=== PATIENT | male | born 1955 | race Caucasian/White ===

== ENCOUNTER 2019-03-18 15:26 | Observation (INO) ==
[2019-03-18] MEDS ORDERED: D5 1/2 NS 1,000 ML IV SCH (16:00)
--- NOTE | 2019-03-18 16:08 | Diag Imaging Result Doc PS360 ---
EXAM: CHEST-1 VIEW 03/18/2019 HISTORY: liver failure TECHNIQUE: AP portable at 1551 COMMENT: The inspiration is not as optimal as on 02/06/2019. There are apparent fibrotic changes near the left costophrenic angle. There is a granuloma in the left upper lobe. There is apical pleural and parenchymal fibrosis bilaterally. The heart size and pulmonary vascularity are within normal limits. IMPRESSION: No acute disease. Electronically signed by Bo Tompkins 03/18/2019 4:05 PM
--- NOTE | 2019-03-18 16:32 | EKG Report ---
Test Performed on : 03/18/2019 3:59:44 PM Test Reason : liver failure Blood Pressure : / mmHG Vent. Rate : 095 BPM Atrial Rate : 095 BPM P-R Int : 192 ms QRS Dur : 110 ms QT Int : 364 ms P-R-T Axes : 053 057 034 degrees QTc Int : 457 ms Normal sinus rhythm. Right atrial enlargement Borderline ECG When compared with ECG of 07-FEB-2019 08:14, QRS duration has increased T wave amplitude has decreased in Anterior leads Confirmed by Kwesi EM, Toy Dahl ([id number]) on 03/18/2019 6:03:19 PM
--- NOTE | 2019-03-18 16:45 | Diag Imaging Result Doc PS360 ---
EXAM: US ABDOMEN-COMPLETE 03/18/2019 HISTORY: r/o ascites TECHNIQUE: Abdominal ultrasound COMMENT: A limited study was performed to evaluate the presence of ascites. There is indeed ascites. IMPRESSION: Ascites. Electronically signed by Bo Tompkins 03/18/2019 4:42 PM
[2019-03-18 18:32] LABS: HEMATOCRIT 39.3 % (42.0-52.0); HEMOGLOBIN 13.1 g/dL (14.0-18.0); MCH 30.1 PG (27-31); MCHC 33.3 g/dL (33-37); MCV 90.3 FL (81-99); RBC 4.35 XMIL (4.7-6.1); RDW 14.4 % (11.5-14.5); WBC 8.3 X1000 (4.8-10.8)
[2019-03-18 18:37] LABS: INR 1.47; PROTIME 18.1 Seconds (11.0-16.0)
[2019-03-18 18:38] LABS: PTT 36.1 Seconds (22.3-41.8)
[2019-03-18 18:50] LABS: AGAP 14; ALB/GLOB RATIO 0.4; ALBUMIN 2.4 g/dL (3.5-5.0); ALKALINE PHOSPHATASE 194 U/L (32-122); BUN 6 mg/dL (8-22); CHLORIDE 101 mmol/L (98-107); COSMO 274; CREATININE 0.8 mg/dL (0.7-1.2); ESTIMATED GFR > 60; GLUCOSE 109 mg/dL (70-104); GOT 59 U/L (10-34); GPT 25 U/L (10-44); POTASSIUM 3.2 mmol/L (3.5-5.1); SODIUM 138 mmol/L (136-145); TCO2 23 mmol/L (25-35); TOTAL BILIRUBIN 1.58 mg/dL (0.20-1.00); TOTAL PROTEIN 8.5 g/dL (6.3-8.3)
[2019-03-18] MEDS: D5 1/2 NS + KCL 30 MEQ 1,000 ML IV SCH (22:24)
[2019-03-18] MEDS: AMBIEN PO SCH (22:25)
[2019-03-19 02:09] LABS: URINE SOURCE VOIDED
[2019-03-19 02:11] LABS: BILIRUBIN URINE SMALL (NEGATIVE); BLOOD URINE NEGATIVE (NEGATIVE); COLOR ORANGE; GLUCOSE URINE NEGATIVE (NEGATIVE); KETONE URINE TRACE mg/dL (NEGATIVE); LEUKOCYTES URINE NEGATIVE (NEGATIVE); NITRITE URINE NEGATIVE (NEGATIVE); PROTEIN URINE 30 mg/dL (NEGATIVE); TURBIDITY URINE CLEAR (CLEAR); UROBILINOGEN URINE 8 mg/dL (NORMAL)
[2019-03-19 02:26] LABS: UR EPITHELIAL CELLS <10 /HPF (<10); URINE BACTERIA NEGATIVE /HPF; URINE WBC <10 /HPF (<10)
[2019-03-19 02:28] LABS: URINE CASTS NONE SEEN; URINE CRYSTALS NONE SEEN; URINE SMALL ROUND CELLS NONE SEEN; URINE YEAST NONE SEEN
[2019-03-19] MEDS: PROTONIX PO SCH (06:41)
[2019-03-19] MEDS: THERA M PLUS PO SCH (08:55)
[2019-03-19] MEDS: CARAFATE PO SCH ×3 (08:55→17:00)
--- NOTE | 2019-03-19 09:34 | Diag Imaging Result Doc PS360 ---
US PELVIC MALE (COMPLETE) - 03/19/2019 INDICATION: liver failure/cirrhosis/ascites TECHNIQUE: Ultrasound limited COMPARISON: None FINDINGS: Ultrasound was performed for ascites. There is trace ascites, certainly not enough to drain. Probably about 1 to 2 L overall. IMPRESSION: Trace ascites, not enough to drain. Electronically signed by Carl Ochoa 03/19/2019 9:31 AM
--- NOTE | 2019-03-19 10:51 | Diag Imaging Result Doc PS360 ---
EXAM: CT ABD/PELVIS W/PO AND IV CON INDICATION: abd pain TECHNIQUE: This exam was performed using automated exposure control, adjustment of mA or kV according to patient size, and/or use of iterative reconstruction technique. COMPARISON: None. FINDINGS: There is a trace effusion at the right lung base and right basilar atelectasis. There is large volume ascites throughout the abdomen and pelvis, much higher volume than was suggested on a recent ultrasound. There is advanced cirrhosis. The liver parenchyma is extremely heterogeneous in there is ill-defined low density involving much of the right hepatic lobe and caudate lobe. Parts of this appears somewhat masslike and other parts appear infiltrative. It is suspicious for a neoplastic process, namely hepatocellular carcinoma. There has been a prior cholecystectomy. There is no splenomegaly. The pancreas, adrenal glands, and kidneys are unremarkable. The urinary bladder is nondistended. There is a small right inguinal hernia that contains only fat and fluid. There is wall thickening involving the entire colon but most prominent at the ascending colon and transverse colon. At least in part, this is due to the surrounding ascites and, at the ascending and transverse colon, fatty infiltration of the wall. However, a component of colitis cannot be excluded. There is also mild mucosal thickening involving practically the entire small bowel which is probably related to the ascites. There is a small hiatal hernia. No significant lymphadenopathy is appreciated. There is nothing to suggest local bony metastatic disease. There is a medullary angela and helical nail associated with the right indicating prior ORIF. IMPRESSION: 1.Large volume ascites with a much larger volume than would suggest on the earlier ultrasound. 2.Advanced cirrhosis with patchy masslike an infiltrative low density associated with the right hepatic lobe and caudate lobe of the liver that is suspicious for neoplasm. 3.Diffuse colonic wall thickening that is worst at the ascending and transverse colon. In part, this may be due to the surrounding ascites. A component of colitis cannot be excluded. 4.Milder diffuse mucosal thickening involving the entire small bowel, which is probably related to the surrounding ascites. Electronically signed by Jad Lawrence 03/19/2019 10:49 AM
[2019-03-19] MEDS ORDERED: IMODIUM PO PRN (17:47)
[2019-03-19] MEDS: D5 1/2 NS + KCL 30 MEQ 1,000 ML IV SCH (20:25)
[2019-03-19] MEDS: AMBIEN PO SCH (20:27)
--- NOTE | 2019-03-19 21:09 | GASTROENTEROLOGY CONSULTATION ---
DATE: 03/19/2019 REASON FOR CONSULTATION: Cirrhosis of the liver, ascites. HISTORY OF PRESENT ILLNESS: This is a 63-year-old, male, who was admitted by Dr. Velazco for abdominal distention. He has had radiology studies on admission. Abdominal ultrasound showed a limited study due to the presence of ascites. He had a pelvis ultrasound to evaluate for ascites that showed trace ascites, but was reported not enough to drain, estimated 1 to 2 L. He then had a CT scan of the abdomen and pelvis today that showed a large volume ascites with a much larger volume than was suggested on the earlier ultrasound. Findings also showed advanced cirrhosis with patchy masslike, infiltrative low density associated with the right hepatic lobe and caudate lobe of the liver, suspicious for neoplasm. Findings also showed diffuse colon wall thickening at the ascending and transverse colon possibly due to surrounding ascites or possible colitis, and mild diffuse mucosal thickening involving the entire small bowel probably related to surrounding ascites. Per patient, he has had onset of symptoms for about a month. He has had abdominal bloating. He has reported constipation and has not been able to eat much. He actually reported some diarrhea today. He has had some lower extremity swelling, but it has improved. He had laparoscopic cholecystectomy by Dr. Velazco on 02/07/2019. He also had a liver biopsy at that time. Gallbladder pathology showed chronic cholecystitis with mucosal erosion, edema, and cholesterolosis. Liver biopsy showed nodular cirrhosis with bridging fibrosis. No iron deposit seen. There was microvesicular and macrovesicular steatosis in approximately 50% of the hepatocytes with chronic inflammation seen. During workup in January, he had a hepatitis profile that showed reactive hepatitis C antibody, but hepatitis C RNA was undetected. The patient reports alcohol use of 2 shots of whiskey daily for many years. His last alcohol use was two days ago. He has reported some shortness of breath in relation to abdominal distention. No reported chest pain. PAST MEDICAL HISTORY: Gallbladder disease, status post cholecystectomy in January 2019. PAST SURGICAL HISTORY: History of hip fracture and hip replacement, right. Neck surgery, cholecystectomy in January 2019. ALLERGIES: Lisinopril causing anaphylaxis. HOME MEDICATIONS: Multivitamin daily, Protonix 40 mg daily, Carafate 1 g 3 times a day. SOCIAL HISTORY: Positive for tobacco use, 1/2 pack to 1 pack daily. Positive for alcohol use, two shots of whiskey daily. No reported IV drugs. No reported marijuana use. He is on disability. He has 2 children. He is not . REVIEW OF SYSTEMS: Per history of present illness. PHYSICAL EXAMINATION: Vital Signs: Temperature 97.9 degrees, pulse 100, respirations 20, blood pressure 123/74. General: Patient is awake and alert, in no acute distress. HEENT: Normocephalic, atraumatic. Pupils equal, round, reactive to light. Sclerae nonicteric. Respiratory: Lung sounds essentially clear. Abdomen: Distention, somewhat firm. Tender with palpation. Neurologic: Cranial nerves 2-12 grossly intact. Musculoskeletal: No current swelling in the lower extremities noted. DIAGNOSTIC RESULTS: Laboratory: Hematology: WBC 8.30, hemoglobin 13.1, hematocrit 39.3, MCV 90.3, platelet 320,000. Chemistry: Sodium 138, potassium 3.2 chloride 101, CO2 of 23, BUN 6, creatinine 0.8, glucose 109, calcium 9.0, total bilirubin 1.58, AST 59, ALT 25, alkaline phosphatase 194, total protein 8.5, albumin 2.4. Coagulation: ProTime 18.1, INR 1.47, PTT 36.1. Imaging studies: Abdominal ultrasound that has showed a small amount of ascites. CT scan showed a larger amount of ascites and possible masslike effect in the right hepatic lobe and caudate lobe of the liver questionable for neoplasm. Also, showing diffuse colon wall thickening at the ascending and transverse colon, and mucosal thickening in the small bowel. ASSESSMENT: 1. Cirrhosis of the liver. 2. Alcohol abuse. 3. Hepatitis C antibody reactive, but viral load is undetected. 4. Ascites. 5. CT scan showing possible mass in the liver. PLAN: We will order alpha-fetoprotein, MRI of the abdomen with attention to liver, repeat of ultrasound of the abdomen for possible diagnostic and therapeutic paracentesis if able. Labs have been ordered. Further plans will be made according to findings. I have discussed this case with Dr. Nye. Thank you for this consultation. Dictated by FRANK Caldwell for Parveen Nye MD cc: FRANK Bob MD Hugh C. Nabers, MD
[2019-03-20] MEDS: PROTONIX PO SCH (06:12)
[2019-03-20 07:04] LABS: BASO# 0.04 X1000 (0.0-0.2); BASO% 0.5 % (0.0-0.8); EOS# 0.24 X1000 (0.0-0.7); EOS% 3.1 % (0.0-10.0); HEMATOCRIT 31.8 % (42.0-52.0); HEMOGLOBIN 10.4 g/dL (14.0-18.0); IMM GRAN# 0.03 X1000 (0.0-0.04); IMM GRAN% 0.4 % (0.0-0.5); LYMPH# 2.26 X1000 (1.2-3.4); LYMPH% 29.4 % (20.5-51.1); MCH 29.1 PG (27-31); MCHC 32.7 g/dL (33-37); MCV 89.1 FL (81-99); MONO# 1.53 X1000 (0.11-0.59); MONO% 19.9 % (1.7-9.3); MPV 10.8 FL (7.4-10.4); NEUT# 3.58 X1000 (1.4-6.5); NEUT% 46.7 % (42.2-75.2); PLT 277 X1000 (130-400); RBC 3.57 XMIL (4.7-6.1); WBC 7.68 X1000 (4.8-10.8)
[2019-03-20 07:10] LABS: INR 1.64; PROTIME 19.8 Seconds (11.0-16.0)
[2019-03-20 07:26] LABS: AGAP 10; ALB/GLOB RATIO 0.4; ALKALINE PHOSPHATASE 145 U/L (32-122); AMYLASE 71 U/L (20-200); BUN 7 mg/dL (8-22); CHLORIDE 102 mmol/L (98-107); COSMO 267; CREATININE 0.7 mg/dL (0.7-1.2); ESTIMATED GFR > 60; GLUCOSE 104 mg/dL (70-104); GOT 50 U/L (10-34); GPT 19 U/L (10-44); LIPASE 39 U/L (13-60); POTASSIUM 3.6 mmol/L (3.5-5.1); SODIUM 134 mmol/L (136-145); TCO2 22 mmol/L (25-35); TOTAL BILIRUBIN 1.32 mg/dL (0.20-1.00); TOTAL PROTEIN 7.1 g/dL (6.3-8.3)
--- NOTE | 2019-03-20 08:59 | Diag Imaging Result Doc PS360 ---
US ABD PARACENTESIS W S/I - 03/20/2019 INDICATION: ascites, cirrhosis of liver COMPARISON: None FINDINGS: The risks and benefits of the procedure were discussed with the patient. All questions were answered. Written and verbal consent was obtained. Ultrasound scanning demonstrated ascites. Overlying skin was prepped and draped in sterile fashion. Anesthesia was achieved with injection of 10 cc 1% lidocaine. The paracentesis catheter was advanced until the return of ascites fluid. 4 L was aspirated. The catheter was withdrawn intact. The patient reported no symptoms from the procedure. IMPRESSION: Successful and uncomplicated ultrasound-guided paracentesis. Electronically signed by Carl Ochoa 03/20/2019 8:57 AM
[2019-03-20] MEDS: CARAFATE PO SCH ×3 (09:09→17:02)
[2019-03-20] MEDS: THERA M PLUS PO SCH (09:09)
--- NOTE | 2019-03-20 11:02 | Diag Imaging Result Doc PS360 ---
EXAM: MRI ABDOMEN W/WO CONTRAST INDICATION: possible liver mass per CT TECHNIQUE: COMPARISON: CT abdomen and pelvis dated 03/19/2019. No prior MRI abdomen is available for comparison. FINDINGS: Since the recent CT, there has been a paracentesis. As result, there has been a decrease in the ascites seen on the prior study. However, there is still a moderate amount of fluid, mainly seen around the liver. As was seen on the CT, the liver has an extensively nodular contour suggesting advanced cirrhosis. The patchy low attenuation involving much of the right hepatic lobe as well as the caudate lobe that appears somewhat masslike exhibits signal dropout on out of phase imaging as compared to in phase imaging. This is compatible with heterogeneous fatty infiltration rather than neoplasm. As was seen on the CT, there is diminished enhancement in these regions. No focal enhancing mass can be identified. The spleen, adrenal glands, and kidneys are grossly unremarkable. There is still some thickening of the right side of the colon is probably related to the ascites. IMPRESSION: 1.Cirrhotic liver. 2.Masslike patchy low attenuation seen in the liver on the previous CT appears to represent very heterogeneous fatty infiltration as evidenced by in and out of phase imaging. 3.No discrete focal enhancing mass can be identified in the liver. 4.Interval decrease in ascites as a result of interval paracentesis. Electronically signed by Jad Lawrence 03/20/2019 10:59 AM
[2019-03-20 16:04] VITALS: BP 132/78
[2019-03-20 16:12] LABS: TOTAL PROT BODY FLUID 1.2 g/dL
[2019-03-20 16:17] LABS: ALBUMIN BODY FLUID 0.4 g/dL; AMYLASE BODY FLUID 21 U/L
[2019-03-20 17:00] LABS: BODY FLUID SOURCE PERITONEAL FLUID; WBC BF 167 /cumm
[2019-03-20 17:03] LABS: MONOS 91 %; POLYS 9 %
--- NOTE | 2019-03-20 20:33 | GASTROENTEROLOGY PROGRESS NOTE ---
DATE: 03/20/2019 SUBJECTIVE: Patient was sitting up in the bed eating his lunch at the time of my rounds. He states he feels much better since his paracentesis where he had 4 L of fluid removed. Results from paracentesis and MRI were discussed with Dr. Nye. Abdominal paracentesis showed removal of 4 L of fluid. MRI of the abdomen showed cirrhosis of the liver. The masslike attenuation that was seen on the CT scan appears to represent heterogeneous fatty infiltration and not a liver mass. There was no discrete focal enhancing mass identified in the liver, and he did have noted decrease in ascites after his paracentesis that was done prior to the MRI of the abdomen. As noted, patient does feel better. He is wanting to go home. OBJECTIVE: Vital Signs: Temperature 98.4 degrees, pulse 94, respirations 16, blood pressure 132/78. General: Patient is awake and alert, in no acute distress. He was eating his lunch. Respiratory: Lung sounds essentially clear. Abdomen: Much less distended than it was yesterday since his paracentesis where 4 L of fluid were removed. Abdomen is now softer and nontender. LABORATORY: Hematology: WBC 7.68, hemoglobin 10.4, hematocrit 31.8, MCV 89.1, platelets 277,000. Chemistry: Sodium 134, potassium 3.6, chloride 102, carbon dioxide 22, BUN 7, creatinine 0.7, glucose 104, calcium 8.0, total bilirubin 1.32, AST 50, ALT 19, alkaline phosphatase 145, albumin 2.0, amylase 71, lipase 39. Results from paracentesis: Partially resulted SAAG, consistent with portal hypertension, greater than 1.1. Waiting on other fluid analysis. ASSESSMENT: 1. Cirrhosis of the liver. 2. Alcohol abuse. The patient has been counseled on alcohol cessation. 3. History of hepatitis C. His viral load was undetected. 4. Ascites, improved after paracentesis where 4 L of fluid were removed. 5. CT scan showed a possible mass in the liver, but MRI of the abdomen was not consistent with a mass, but more consistent with fatty infiltration of the liver. PLAN: Continue current medications. Once patient is discharged, I have given him contact information to call and make a followup appointment. Further plans will be made as needed. I have discussed this case with Dr. Nye. Dictated by FRANK Caldwell for Parveen Nye MD cc: FRANK Bob MD Hugh C. Nabers, MD
== END 2019-03-20 17:47 | disposition home or self-care (01) ==
LOC: DIRADM → 4N 15:26
PROVIDERS: ADMIT Surgery; ATTEND Surgery